=== PATIENT | male | born 1990 | race American Indian/Alaskan Native ===

== ENCOUNTER 2019-03-09 18:33 | Emergency (ER) | payer OTHER ==
--- NOTE | 2019-03-09 19:45 | Emergency Department Report ---
Chief Complaint: Extremity Injury, Lower Stated Complaint: LT FOOT PAIN - HPI History of Present Illness: 29yo BM states that he has R achilles pain x 1 day. He states that standing and walking are difficult and he injured his Achilles x 2 months ago. - Exam Vital Signs: Vital Signs 03/09/19 18:56 Temperature 98.2 F Pulse Rate 111 H Respiratory 16 Rate Blood Pressure 146/91 O2 Sat by Pulse 96 Oximetry MSE screening note: Focused history and physical exam performed. Due to findings the following was ordered: ED Disposition for MSE Condition: Stable
[2019-03-09] MEDS ORDERED: predniSONE 50 MG TAB PO ONE (20:43)
[2019-03-09] MEDS ORDERED: IBUPROFEN 600 MG TAB PO ONE (20:43)
--- NOTE | 2019-03-09 21:16 | Emergency Department Report ---
ED Extremity Problem HPI - General Chief complaint: Extremity Injury, Lower Stated complaint: LT FOOT PAIN Source: patient Mode of arrival: Ambulatory Limitations: No Limitations - History of Present Illness Initial comments: Patient is a 29-year-old -[place] male with no past medical history who presents to the ED with acute onset persistent nontraumatic posterior left ankle pain and painful Achilles tendon for over 2 months. Patient states that in the last 2 weeks, the pain has worsened especially with any active range of motion, palpation or movement or weightbearing. Patient states that the pain radiates to the left calf whenever he is working. Patient denies fall, traumatic injury, dizziness, fever, chills, chest pain, shortness of breath, numbness and tingling of left leg or left ankle. MD Complaint: extremity pain (Posterior left ankle pain), joint paint (Left ankle nd Achilles tendon pain), other (left Achilles tendon pain) -: Gradual, month(s) (2) Location: left, lower extremity (ankle) History of Same: Yes -: Yes arthralgia Radiation: distal Severity scale (0 -10): 9 Quality: aching, sharp, constant Consistency: constant Improves with: nothing Worsens with: weight bearing, walking, exertion, palpation Associated Symptoms: denies other symptoms, arthralgias. denies: chest pain, shortness of breath, fever - Related Data Previous Rx's Medication Instructions Recorded Last Taken Type Naproxen [Naprosyn TAB] 500 mg PO Q12H PRN #30 tablet 03/09/19 Unknown Rx Prednisone [predniSONE 10 mg 10 mg PO .TAPER #21 tab.ds.pk 03/09/19 Unknown Rx (6-Day Pack, 21 Tabs)] tiZANidine [Zanaflex 4mg TAB] 4 mg PO Q8H PRN #21 tablet 03/09/19 Unknown Rx traMADol [Ultram] 50 mg PO Q6HR PRN 3 Days #12 tablet 03/09/19 Unknown Rx Allergies Allergy/AdvReac Type Severity Reaction Status Date / Time No Known Allergies Allergy Unverified 03/09/19 18:47 ED Review of Systems ROS: Stated complaint: LT FOOT PAIN Other details as noted in HPI Constitutional: denies: chills, fever Eyes: denies: eye pain, eye discharge, vision change ENT: denies: ear pain, throat pain Respiratory: denies: cough, shortness of breath, wheezing Cardiovascular: denies: chest pain, palpitations Endocrine: no symptoms reported Gastrointestinal: denies: abdominal pain, nausea, diarrhea Genitourinary: denies: urgency, dysuria Musculoskeletal: arthralgia (Posterior left ankle pain; Left Achilles tendon pain). denies: back pain, joint swelling Skin: denies: rash, lesions Neurological: denies: headache, weakness, paresthesias Psychiatric: denies: anxiety, depression Hematological/Lymphatic: denies: easy bleeding, easy bruising ED Past Medical Hx - Past Medical History Previous Medical History?: Yes Additional medical history: Morbid Obesity - Surgical History Past Surgical History?: No - Social History Smoking Status: Current Every Day Smoker Substance Use Type: None - Medications Home Medications: Home Medications Medication Instructions Recorded Confirmed Last Taken Type Naproxen [Naprosyn TAB] 500 mg PO Q12H PRN #30 tablet 03/09/19 Unknown Rx Prednisone [predniSONE 10 mg 10 mg PO .TAPER #21 tab.ds.pk 03/09/19 Unknown Rx (6-Day Pack, 21 Tabs)] tiZANidine [Zanaflex 4mg TAB] 4 mg PO Q8H PRN #21 tablet 03/09/19 Unknown Rx traMADol [Ultram] 50 mg PO Q6HR PRN 3 Days #12 tablet 03/09/19 Unknown Rx ED Physical Exam - General Limitations: No Limitations General appearance: alert, in no apparent distress - Head Head exam: Present: atraumatic, normocephalic, normal inspection - Eye Eye exam: Present: normal appearance, PERRL, EOMI Pupils: Present: normal accommodation - ENT ENT exam: Present: normal exam, normal orophraynx, mucous membranes moist, TM's normal bilaterally, normal external ear exam - Neck Neck exam: Present: normal inspection, full ROM. Absent: tenderness, lymphadenopathy - Respiratory Respiratory exam: Present: normal lung sounds bilaterally. Absent: respiratory distress, wheezes, rales, stridor, chest wall tenderness, decreased breath sounds, prolonged expiratory - Cardiovascular Cardiovascular Exam: Present: regular rate, normal rhythm, normal heart sounds. Absent: systolic murmur, diastolic murmur, rubs, gallop - GI/Abdominal GI/Abdominal exam: Present: soft, normal bowel sounds. Absent: tenderness, guarding, rigid, hyperactive bowel sounds, organomegaly, bruit - Rectal Rectal exam: Present: deferred - Extremities Exam Extremities exam: Present: normal inspection, full ROM, tenderness (Palpable posterior left Achilles tendon tenderness; Palpable posterior left lower leg), normal capillary refill, calf tenderness (posterior left lower leg tenderness). Absent: pedal edema, joint swelling - Back Exam Back exam: Present: normal inspection, full ROM. Absent: tenderness, CVA tenderness (R), CVA tenderness (L), muscle spasm, paraspinal tenderness, vertebral tenderness, rash noted - Neurological Exam Neurological exam: Present: alert, oriented X3, CN II-XII intact, normal gait, reflexes normal - Psychiatric Psychiatric exam: Present: normal affect, normal mood - Skin Skin exam: Present: warm, dry, intact, normal color. Absent: rash ED Course Vital Signs 03/09/19 03/09/19 18:56 21:52 Temperature 98.2 F Pulse Rate 111 H 102 H Respiratory 16 16 Rate Blood Pressure 146/91 Blood Pressure 158/92 [Left] O2 Sat by Pulse 96 100 Oximetry - Reevaluation(s) Reevaluation #1: 03/09/19 21:16 Patient is a 29-year-old male who presented to the ED with left posterior ankle pain, and painful left Achilles tendon that radiates to the left lower leg for 2 months. In the ED, patient is alert and oriented 3 and is not in distress but appears to be in pain. Physical exam is positive for palpable left posterior Achilles tendon tenderness. Patient was treated for pain in the ED and an Bebeto wrap was applied on the left ankle and Achilles tendon. Patient symptoms are likely due to Achilles tendinitis that radiates to the left lower leg. Patient was discharged home on pain medications and advised follow-up with his primary care physician in 7-10 days for reevaluation. Patient was advised to return to the ED immediately if symptoms get worse. ED Medical Decision Making - Medical Decision Making Patient is a 29-year-old male who presented to the ED with left posterior ankle pain, and painful left Achilles tendon that radiates to the left lower leg for 2 months. In the ED, patient is alert and oriented 3 and is not in distress but appears to be in pain. Physical exam is positive for palpable left posterior Achilles tendon tenderness. Patient was treated for pain in the ED and an Bebeto wrap was applied on the left ankle and Achilles tendon. Patient symptoms are likely due to Achilles tendinitis that radiates to the left lower leg. Patient was discharged home on pain medications and advised follow-up with his primary care physician in 7-10 days for reevaluation. Patient was advised to return to the ED immediately if symptoms get worse. - Differential Diagnosis Achilles Tendonitis; Muscle strain of left lower leg; Sprain of left ankle Critical care attestation.: If time is entered above; I have spent that time in minutes in the direct care of this critically ill patient, excluding procedure time. ED Disposition Clinical Impression: Achilles tendinitis of left lower extremity, Muscle strain of muscle of posterior left lower leg Left ankle sprain Qualifiers: Encounter type: initial encounter Involved ligament of ankle: posterior talofibular ligament Qualified Code(s): S93.492A - Sprain of other ligament of left ankle, initial encounter Disposition: TO HOME OR SELFCARE Is pt being admited?: No Does the pt Need Aspirin: No Condition: Stable Instructions: Muscle Strain (ED), Achilles Tendinitis (ED), Ankle Exercises (GEN) Additional Instructions: Take medication with food, drink plenty of fluids and follow-up with your primary care physician in 7-10 days for reevaluation. Return to the ED immediately if symptoms get worse. Prescriptions: Naproxen [Naprosyn TAB] 500 mg PO Q12H PRN #30 tablet PRN Reason: Pain , Severe (7-10) Prednisone [predniSONE 10 mg (6-Day Pack, 21 Tabs)] 10 mg PO .TAPER #21 tab.ds.pk traMADol [Ultram] 50 mg PO Q6HR PRN 3 Days #12 tablet PRN Reason: Pain tiZANidine [Zanaflex 4mg TAB] 4 mg PO Q8H PRN #21 tablet PRN Reason: Muscle Spasm Referrals: [facility] [Outside] - 3-5 Days Forms: Work/School Release Form(ED) Time of Disposition: 21:20 Print Language: SLOV[place]
[2019-03-09 22:20] VITALS: BP 158/92
== END 2019-03-09 21:52 | disposition home or self-care (01) ==
LOC: ED 18:33
DX: S86.012A Strain of left Achilles tendon, initial encounter (principal); F17.200 Nicotine dependence, unspecified, uncomplicated; E66.01 Morbid (severe) obesity due to excess calories; Z68.42 Body mass index [BMI] 45.0-49.9, adult; Z79.899 Other long term (current) drug therapy; X58.XXXA Exposure to other specified factors, initial encounter; Y93.89 Activity, other specified; Y92.89 Other specified places as the place of occurrence of the external cause; Y99.8 Other external cause status
CPT/HCPCS: 99282; J7512